=== PATIENT | male | born 1960 | race Caucasian/White ===

== ENCOUNTER 2022-08-26 18:54 | Emergency (ER) | payer OTHER, SELFPAY ==
[2022-08-26 19:11] VITALS: BP 147/79; PULSE 65; RESP 18; TEMP 36.4; O2SAT 99
--- NOTE | 2022-08-26 19:23 | ED.SKABFB ---
HPI - Skin/Abscess/Foreign Bdy General Chief complaint: Skin/Abscess/Foreign Body Stated complaint: Rash Time Seen by Provider: 08/26/22 19:14 Source: patient Mode of arrival: ambulatory Limitations: no limitations History of Present Illness HPI narrative: Patient presents today complaining of a 3 day history of rash to the bilateral forearms that has been worsening since onset. Seven days ago he was cutting firewood and may have cut some poison maria l or poison oak at the same time. He has been cleaning with rubbing alcohol without relief. Related Data Home Medications Medication Instructions Recorded Confirmed aspirin 81 mg chewable tablet 81 mg PO DAILY 08/26/22 08/26/22 Allergies Allergy/AdvReac Type Severity Reaction Status Date / Time No Known Allergies Allergy Verified 08/26/22 19:07 Review of Systems Review of Systems: CONSTITUTIONAL: Denies body aches, fever, chills, or sweats. EYES: Denies visual changes, redness, or discharge. ENT: Denies rhinorrhea, congestion, sore throat, or otalgia. CARDIOVASCULAR: Denies chest pain, palpitations, or edema. RESPIRATORY: Denies cough or dyspnea. GASTROINTESTINAL: Denies abdominal pain, nausea, vomiting, or diarrhea. GENITOURINARY: Denies dysuria or hematuria. SKIN: + Pruritic rash MUSCULOSKELETAL: Denies back pain, joint pain, or myalgia. NEUROLOGIC: Denies headache, numbness, tingling, or weakness. PSYCH: Denies depression or anxiety. PMFSH Comments At time of signature, I have reviewed and agree with nursing past medical, surgical, social and family history unless otherwise noted. Please see nursing chart for further information. There is no relevant family history pertinent to the presenting complaint Exam Narrative: GENERAL: Well-appearing, well-nourished, and in no acute distress. HEAD: Normocephalic, atraumatic. EYES: EOMI. No redness or drainage. Conjunctivae normal. ENT: Mucous membranes pink and moist. NECK: Normal AROM. CHEST: No respiratory distress. EXTREMITIES: Normal range of motion. No edema. SKIN: Warm, dry. Capillary refill normal. Normal skin turgor. Erythematous tiny vesicular rash to the left anterior forearm. Similar rash to the right anterior forearm with honey crusting as well. NEURO: No focal deficits. Alert and oriented x3. Gait steady. PSYCH: Normal affect. No signs of depression or anxiety. Course Course Level of Care: Express Care Visit Vital Signs Vital signs: Vital Signs Temperature 97.5 F L 08/26/22 19:11 Pulse Rate 65 08/26/22 19:11 Respiratory Rate 18 08/26/22 19:11 Blood Pressure 147/79 H 08/26/22 19:11 Pulse Oximetry 99 08/26/22 19:11 Oxygen Delivery Room Air 08/26/22 19:11 Temperature 97.5 F L 08/26/22 19:11 Pulse Rate 65 08/26/22 19:11 Respiratory Rate 18 08/26/22 19:11 Blood Pressure 147/79 H 08/26/22 19:11 Pulse Oximetry 99 08/26/22 19:11 Oxygen Delivery Room Air 08/26/22 19:11 Reviewed. Pt has been instructed to follow up with his PCP regarding his elevated blood pressure today. MDM - Skin/Abscess/Foreign Bdy Differential Diagnosis Differential diagnosis: Likely viral exanthem, urticaria, cellulitis, impetigo and contact dermatitis Critical Care Time Critical Care Time Critical Care Time: No Discharge Plan Discharge Clinical Impression: Impetigo Contact dermatitis Qualifiers: Contact dermatitis type: unspecified Contact dermatitis trigger: unspecified trigger Qualified Code(s): L25.9 - Unspecified contact dermatitis, unspecified cause Patient Disposition: Home, Self-Care Condition: Stable Instructions: Antibiotic Form, Contact Dermatitis (DC) Additional Instructions: Please take the cephalexin and prednisone as directed. Keep the areas clean and dry. Follow-up with your doctor in 3-4 days if symptoms are not improving. Your blood pressure was elevated above 120/80 today at Urgent Care. This puts you above the threshold for
== END 2022-08-26 19:28 | disposition home or self-care (01) ==
PROVIDERS: Emergency Provider Nurse Practitioner; PCP Family Medicine
DX: L01.00 Impetigo, unspecified (principal); L25.9 Unspecified contact dermatitis, unspecified cause; Z79.82 Long term (current) use of aspirin
CPT/HCPCS: 99203; G0463